=== PATIENT | male | born 1965 | race Caucasian/White ===

== ENCOUNTER → 2017-07-21 | Outpatient (CLI) | payer OTHER ==
[~2017-07-21] MED LIST: DILTIAZEM CD240 MG PO; HYDROCHLOROTHIA25 M1 PO; KEFLEX 500MG.500 MG PO; LEVOTHYROXINE0.15 M1 PO; ULTRAM50 MG PO
[2017-07-21 19:32] LABS: HEMOGLOBIN 14.5 g/dL (14.1-18.0); LYMPH # 1.3 K/mm3 (0.7-4.5); LYMPH % 32.4 % (10-50)
[2017-07-21 20:20] LABS: BUN 12 mg/dL (7-18); GFR (ESTIMATED) 89 ML/MIN (>60)
[2017-07-23 08:46] LABS: HBsAg Screen Negative (Negative); Hep A Ab, IgM Negative (Negative); Hep B Core Ab, IgM Negative (Negative); Hep C Virus Ab <0.1 (0.0-0.9)
== END ==
LOC: LAB 18:44
PROVIDERS: Nurse Practitioner Family
DX: I10 Essential (primary) hypertension (principal); Z00.00 Encounter for general adult medical examination without abnormal findings